=== PATIENT | female | born 1985 | race Caucasian/White ===

== ENCOUNTER → 2017-01-22 | Outpatient (CLI) | payer BC | END | disposition home or self-care (01) | LOC: LAB 10:00 | PROVIDERS: ATTEND Physician Assistant | DX: D23.5 Other benign neoplasm of skin of trunk (principal); D22.39 Melanocytic nevi of other parts of face ==

== ENCOUNTER → 2017-03-16 | Outpatient (CLI) | payer BC ==
[2017-03-16 09:20] LABS: Basophils # (auto) 0.1 uL; Basophils % (auto) 0.6 % (0.0-2.0); Eosinophils # (auto) 0.2 uL; Eosinophils % (auto) 1.9 % (0.0-7.0); Hematocrit 46.4 % (36.0-46.0); Hemoglobin 15.8 g/dL (12.2-16.2); Lymphocytes # (auto) 3.7 uL; Lymphocytes % (auto) 39.4 % (10.0-50.0); Mean Corpuscular Hemoglobin 28.5 pg (28.0-32.0); Mean Corpuscular Hgb Conc. 34.1 g/dL (32.0-36.0); Mean Corpuscular Volume 83.6 fL (80.0-100.0); Mean Platelet Volume 7.2 fL (7.4-10.4); Monocytes # (auto) 0.6 uL; Monocytes % (auto) 6.7 % (0.0-12.0); Neutrophils # (auto) 4.8 uL; Neutrophils % (auto) 51.4 % (37.0-80.0); Platelet Count (auto) 279 10^3/uL (140-450); Red Cell Distribution Width 13.2 % (11.6-16.0); White Blood Cell 9.4 10^3/uL (4.4-10.8)
[2017-03-16 09:37] LABS: Albumin 3.8 g/dL (3.4-5.0); Alkaline Phosphatase 66 U/L (45-117); Anion Gap 10 (5-15); Aspartate Aminotransferase 16 U/L (15-37); BUN/Creatinine Ratio 13.6; Bilirubin, Total 0.3 mg/dL (0.2-1.0); Blood Urea Nitrogen 11 mg/dL (7-18); Calcium 9.4 mg/dL (8.5-10.1); Carbon Dioxide 24 mmol/L (21-32); Chloride 106 mmol/L (98-107); Cholesterol 243 mg/dL (< 200); GFR African American 104 mL/min; GFR Non-African American 86 mL/min; Glucose 102 mg/dL (74-106); HDL Cholesterol 31 mg/dL (40-59); Sodium 140 mmol/L (136-145); Total Protein 7.6 g/dL (6.4-8.2); Triglycerides 423 mg/dL (< 150)
== END | disposition home or self-care (01) ==
LOC: LAB 08:39
PROVIDERS: ATTEND Obstetrics & Gynecology
DX: N92.6 Irregular menstruation, unspecified (principal)
CPT/HCPCS: 36415; 80053; 80061; 82306; 82670; 83001; 83002; 83036; 84146; 84443; 85025

== ENCOUNTER → 2017-04-23 | Outpatient (CLI) | payer BC | END | disposition home or self-care (01) | LOC: LAB 11:00 | PROVIDERS: ATTEND Internal Medicine | DX: D23.5 Other benign neoplasm of skin of trunk (principal) ==

== ENCOUNTER → 2017-05-30 | Outpatient (CLI) | payer BC ==
[2017-05-30 13:25] LABS: Cholesterol 228 mg/dL (< 200); HDL Cholesterol 33 mg/dL (40-59); LDL Cholesterol 140 mg/dL (< 100); Triglycerides 380 mg/dL (< 150)
== END | disposition home or self-care (01) ==
LOC: LAB 12:36
PROVIDERS: ATTEND Internal Medicine
DX: E78.2 Mixed hyperlipidemia (principal)
CPT/HCPCS: 36415; 80061

== ENCOUNTER → 2017-06-13 | Outpatient (CLI) | payer BC | END | disposition home or self-care (01) | LOC: LAB 15:06 | DX: N92.6 Irregular menstruation, unspecified (principal) | CPT/HCPCS: 82670; 83001; 83002 ==

== ENCOUNTER → 2017-06-20 | Outpatient (CLI) | payer BC ==
[2017-06-21 12:07] LABS: Insulin 30.1 uIU/mL (2.6-24.9)
== END | disposition home or self-care (01) ==
LOC: LAB 08:31
DX: N92.6 Irregular menstruation, unspecified (principal)
CPT/HCPCS: 36415; 82626; 82670; 83001; 83002; 83036; 83525; 84146

== ENCOUNTER → 2017-11-16 | Outpatient (CLI) | payer BC ==
[2017-11-16 09:23] LABS: Albumin 3.8 g/dL (3.4-5.0); BUN/Creatinine Ratio 12.2; Bilirubin, Total 0.4 mg/dL (0.2-1.0); Calcium 8.9 mg/dL (8.5-10.1); Potassium 3.8 mmol/L (3.5-5.1); Total Protein 7.8 g/dL (6.4-8.2)
== END | disposition home or self-care (01) ==
LOC: LAB 08:12
DX: F31.9 Bipolar disorder, unspecified (principal)
CPT/HCPCS: 36415; 80053; 80178; 84443

== ENCOUNTER → 2018-01-16 | Outpatient (CLI) | payer BC ==
[2018-01-16 10:08] LABS: Cholesterol 195 mg/dL (< 200); HDL Cholesterol 32 mg/dL (40-59); LDL Cholesterol 147 mg/dL (< 100); Triglycerides 220 mg/dL (< 150)
== END | disposition home or self-care (01) ==
LOC: LAB 08:42
PROVIDERS: ATTEND Physician Assistant
DX: E11.9 Type 2 diabetes mellitus without complications (principal); E78.5 Hyperlipidemia, unspecified
CPT/HCPCS: 36415; 80061; 83036

== ENCOUNTER → 2018-08-21 | Outpatient (CLI) | payer BC ==
[2018-08-21 09:29] LABS: Basophils # (auto) 0.1 uL; Basophils % (auto) 0.7 % (0.0-2.0); Eosinophils # (auto) 0.2 uL; Eosinophils % (auto) 2.5 % (0.0-7.0); Hematocrit 43.7 % (36.0-46.0); Hemoglobin 14.7 g/dL (12.2-16.2); Lymphocytes # (auto) 3.3 uL; Lymphocytes % (auto) 37.5 % (10.0-50.0); Mean Corpuscular Hemoglobin 29.7 pg (28.0-32.0); Mean Corpuscular Hgb Conc. 33.7 g/dL (32.0-36.0); Mean Corpuscular Volume 88.2 fL (80.0-100.0); Monocytes # (auto) 0.6 uL; Monocytes % (auto) 7.4 % (0.0-12.0); Neutrophils # (auto) 4.5 uL; Neutrophils % (auto) 51.9 % (37.0-80.0); Nucleated Red Blood Cells % 0.1 %; Platelet Count (auto) 221 10^3/uL (140-450); Red Blood Cells 4.95 10^6/uL (4.0-5.20); White Blood Cell 8.7 10^3/uL (4.4-10.8)
[2018-08-21 09:35] LABS: Urine Bacteria NONE SEEN /hpf (None Seen); Urine Blood Negative /uL (Negative); Urine Specific Gravity 1.024 (1.001-1.035); Urine WBC 1 /hpf (0 - 5)
[2018-08-21 10:13] LABS: Free T4 (Free Thyroxine) 0.91 ng/dL (0.89-1.76); T3 Total 1.66 ng/mL (0.60-1.81)
[2018-08-21 10:30] LABS: Albumin 3.7 g/dL (3.4-5.0); BUN/Creatinine Ratio 11.4; Bilirubin, Total 0.3 mg/dL (0.2-1.0); Calcium 8.9 mg/dL (8.5-10.1); Magnesium 2.4 mg/dL (1.6-2.6); Potassium 4.1 mmol/L (3.5-5.1); Total Protein 7.4 g/dL (6.4-8.2); Uric Acid 5.3 mg/dL (2.6-6.0)
== END | disposition home or self-care (01) ==
LOC: LAB 08:41
DX: Z76.89 Persons encountering health services in other specified circumstances (principal)
CPT/HCPCS: 36415; 80053; 80061; 81001; 82306; 82607; 83036; 83735; 84439; 84443; 84480; 84550; 85025

== ENCOUNTER → 2018-10-16 | Outpatient (CLI) | payer BC ==
[2018-10-16 10:04] LABS: Free T4 (Free Thyroxine) 0.98 ng/dL (0.89-1.76); T3 Total 1.39 ng/mL (0.60-1.81)
== END | disposition home or self-care (01) ==
LOC: LAB 08:52
PROVIDERS: ATTEND Internal Medicine
DX: E03.9 Hypothyroidism, unspecified (principal)
CPT/HCPCS: 36415; 84439; 84443; 84480

== ENCOUNTER → 2019-01-13 | Outpatient (CLI) | payer BC ==
[2019-01-13 11:22] LABS: Basophils # (auto) 0.1 uL; Basophils % (auto) 0.9 % (0.0-2.0); Eosinophils # (auto) 0.2 uL; Eosinophils % (auto) 2.6 % (0.0-7.0); Hematocrit 44.1 % (36.0-46.0); Hemoglobin 14.7 g/dL (12.2-16.2); Lymphocytes # (auto) 2.7 uL; Lymphocytes % (auto) 32.4 % (10.0-50.0); Mean Corpuscular Hemoglobin 29.5 pg (28.0-32.0); Mean Corpuscular Hgb Conc. 33.3 g/dL (32.0-36.0); Mean Corpuscular Volume 88.6 fL (80.0-100.0); Monocytes # (auto) 0.5 uL; Monocytes % (auto) 6.1 % (0.0-12.0); Neutrophils # (auto) 4.8 uL; Platelet Count (auto) 256 10^3/uL (140-450); Red Blood Cells 4.98 10^6/uL (4.0-5.20); White Blood Cell 8.2 10^3/uL (4.4-10.8)
[2019-01-13 11:30] LABS: Albumin 3.7 g/dL (3.4-5.0); Calcium 9.5 mg/dL (8.5-10.1); Potassium 4.2 mmol/L (3.5-5.1); Uric Acid 4.6 mg/dL (2.6-6.0)
[2019-01-13 12:00] LABS: Urine Bacteria NONE SEEN /hpf (None Seen); Urine Blood Negative /uL (Negative); Urine Specific Gravity 1.014 (1.001-1.035); Urine WBC <1 /hpf (0 - 5)
[2019-01-13 12:18] LABS: BUN/Creatinine Ratio 11.4; Bilirubin, Total 0.3 mg/dL (0.2-1.0); Total Protein 7.5 g/dL (6.4-8.2)
[2019-01-13 13:57] LABS: Free T3 2.8 pg/mL (2.3-4.2); Free T4 (Free Thyroxine) 1.11 ng/dL (0.89-1.76); T3 Total 1.24 ng/mL (0.60-1.81)
== END | disposition home or self-care (01) ==
LOC: LAB 09:10
DX: Z00.00 Encounter for general adult medical examination without abnormal findings (principal); Z13.29 Encounter for screening for other suspected endocrine disorder; E03.9 Hypothyroidism, unspecified; F31.9 Bipolar disorder, unspecified
CPT/HCPCS: 36415; 80053; 80061; 80178; 81001; 82607; 83036; 84439; 84443; 84480; 84481; 84550; 85025